=== PATIENT | female | born 1995 | race Caucasian/White ===

== ENCOUNTER 2016-10-29 17:17 | Emergency (ER) | payer BC ==
[2016-10-29 17:42] VITALS: BP 141/63
--- NOTE | 2016-10-29 18:38 | RAD ---
Indication: Right foot pain. 3 views of the right foot demonstrates no fracture. No other bone or joint abnormality is noted. IMPRESSION: No fracture of the foot is noted.
--- NOTE | 2016-10-29 18:48 | UC ---
Teresa Staples Claudia, scribed for Popeye Molina MD on 10/29/16 at 1746 . Lower Extremity/Ankle HPI - HPI Summary HPI Summary: 21 year old female presents to the [facility] with right foot pain sudden onset Saturday. Pt notes that the pain started on Saturday pm after she worse shoes too small for her to work. She notes that there was no trauma or twisting that she recalls. She denies any fever, chills. - History of Current Complaint Chief Complaint: UCLowerExtremity Stated Complaint: FOOT PAIN Time Seen by Provider: 10/29/16 17:41 Hx Obtained From: Patient Hx Last Menstrual Period: mirena Onset/Duration: Sudden Onset, Lasting Days, Still Present Aggravating Factor(s): Ambulation Able to Bear Weight: Yes - Allergies/Home Medications Allergies/Adverse Reactions: Allergies Allergy/AdvReac Type Severity Reaction Status Date / Time No Known Allergies Allergy Verified 10/29/16 17:35 Home Medications: Home Medications Meclizine HCl [Meclizine 25] 25 mg PO DAILY PRN 10/29/16 [History Confirmed ] PMH/Surg Hx/FS Hx/Imm Hx Previously Healthy: Yes Endocrine History Of: Denies: Diabetes, Thyroid Disease, Hyperthyroidism, Hypothyroidism, Dyslipidemia Cardiovascular History Of: Denies: Cardiac Disorders, Hypertension, Pacemaker/ICD, Myocardial Infarction , Congestive Heart Failure, Atrial Fibrillation, Deep Vein Thrombosis, Bleeding Disorders Respiratory History Of: Denies: COPD, Asthma, Bronchitis, Pneumonia, Pulmonary Embolism GI/ History Of: Denies: Gastroesophageal Reflux, Ulcer, Gastrointestinal Bleed, Gall Bladder Disease, Kidney Stones, Diverticulitis, Renal Disease, Urosepsis Neurological History Of: Denies: TIA, CVA, Dementia, Seizures, Migraine Psychological History Of: Denies: Anxiety, Depression, Bipolar Disorder, Schizophrenia, Post Traumatic Stress Disorder Cancer History Of: Denies: Lung Cancer, Colorectal Cancer, Breast Cancer, Prostate Cancer, Cervical Cancer - Surgical History Surgical History: Yes Surgery Procedure, Year, and Place: WISDOM TEETH EXTRACTION - Family History Known Family History: Negative: Hypertension, Diabetes - Social History Alcohol Use: Rare Substance Use Type: None Smoking Status (MU): Light Every Day Tobacco Smoker Type: Cigarettes Amount Used/How Often: 4 CIG/DAY When Did the Patient Quit Smoking/Using Tobacco: 7 months ago Household Exposure Type: Cigarettes Cessation Counseling: Patient Advised to Stop - Immunization History Most Recent Influenza Vaccination: fall 2015 Review of Systems Constitutional: Negative Skin: Negative Eyes: Negative ENT: Negative Respiratory: Negative Cardiovascular: Negative Gastrointestinal: Negative Genitourinary: Negative Motor: Other - right foot pain Neurovascular: Negative Musculoskeletal: Negative Neurological: Negative Psychological: Negative All Other Systems Reviewed And Are Negative: Yes Physical Exam Triage Information Reviewed: Yes Vital Signs: Initial Vital Signs Temp 98.5 F 10/29/16 17:38 Pulse 67 10/29/16 17:38 Resp 16 10/29/16 17:38 BP 141/63 10/29/16 17:38 Pulse Ox 100 10/29/16 17:38 - Additional Comments Vital signs: Reviewed Gen.: Patient is a well developed and nourished female in no acute distress. Patient is sitting comfortably on the stretcher. Head: Normacephalic and atraumatic Eyes: PERRLA, EOMI x2. Ears: Right ear canal and TM WNL and Left ear canal and TM WNL Nose and mouth: WNL Neck: Supple, Positive bilateral submandibular and anterior cervical lymphadenopathy. No JVD Lungs: CTA B/L CVS: S1 & S2 present. No murmurs appreciated. ABDOMEN: Soft NT w/ positive BS. EXT: FROM x 4. lateral/ventral/dorsal aspect of the right foot tenderness upon palpation NEURO: A+O X 3. Diagnostics - Radiology Right Foot Xray Interpretation: No Acute Changes - No fracture of the foot is noted. Radiology Interpretation Completed By: Radiologist Lower Extremity Course/Dx - Course Course Of Treatment: 21 year old female presents to the [facility] with right foot pain sudden onset Saturday. Pt notes that the pain started on Saturday pm after she worse shoes too small for her to work. She notes that there was no trauma or twisting that she recalls. She denies any fever, chills. XR of the right foot shows no fracture. I believe the pt only has a foot sprain. At this time the pt does not need anything but ibuprofen and rest, she was instructed to f/u with her PCP if the Sx worsen. Pt is ambulating and hemodynamically stable. - Differential Dx/Diagnosis Differential Diagnosis/HQI/PQRI: Arthritis, Bursitis, Sprain, Strain, Tendonitis Provider Diagnoses: foot sprain Discharge - Discharge Plan Condition: Stable Disposition: HOME Patient Education Materials: Foot Sprain (ED) Referrals: Jarred Winter MD [Primary Care Provider] - 2 Days The documentation as recorded by the Teresa walsh Claudia accurately reflects the service I personally performed and the decisions made by Jesse valenzuela Walter, MD.
== END 2016-10-29 19:02 | disposition home or self-care (01) ==
LOC: UCEAST 17:17
DX: S93.601A Unspecified sprain of right foot, initial encounter (principal); X58.XXXA Exposure to other specified factors, initial encounter; Y93.9 Activity, unspecified; Y92.9 Unspecified place or not applicable; F17.210 Nicotine dependence, cigarettes, uncomplicated
CPT/HCPCS: 99211; G0463